=== PATIENT | female | born 1975 | race Two or more races ===

== ENCOUNTER 2021-05-11 07:00 | Inpatient (IN) | payer OTHER ==
[~2021-05-11] VITALS: Ht 162.6 cm; Wt 66.2 kg
[2021-05-15] MEDS ORDERED: SYNTHROID75 MCG PO (10:07)
[2021-05-15] MEDS ORDERED: INTEGRA F CAPS1 EACH PO (10:08)
[2021-05-16] MEDS ORDERED: INFED50 MG/ML (08:09)
[2021-05-16] MEDS ORDERED: MEGESTROL ACETA40 MG (08:09)
== END 2021-05-18 18:43 | disposition home or self-care (01) | DRG 743 ==
LOC: O/R 05-16 05:15 → OB/GYN 05-16 05:15 → SURH 05-16 07:15 → OB/GYN 05-16 10:22
PROVIDERS: ADMIT Specialist; ATTEND Specialist
PROC: 0UT70ZZ Resection of Bilateral Fallopian Tubes, Open Approach (ICD-10-PCS; 2021-05-16)
PROC: 0UT90ZZ Resection of Uterus, Open Approach (ICD-10-PCS; 2021-05-16)
PROC: 0UT90ZZ Resection of Uterus, Open Approach (ICD-10-PCS; principal; 2021-05-16 07:00)
DX: D25.1 Intramural leiomyoma of uterus (principal); D25.0 Submucous leiomyoma of uterus; D25.2 Subserosal leiomyoma of uterus; N72 Inflammatory disease of cervix uteri